=== PATIENT | male | born 1960 | race Caucasian/White ===

== ENCOUNTER 2019-10-16 14:10 | Emergency (ER) | payer BC ==
[2019-10-16] MEDS ORDERED: Ketorolac 30 MG/ML SDV IVPUSH ONE (14:29)
[2019-10-16] MEDS ORDERED: Sodium Chloride 0.9% 10 ML Syringe FLUSH PRN (14:29)
[2019-10-16] MEDS ORDERED: Ondansetron 4 MG/2 ML SDV IVPUSH ONE (14:29)
[2019-10-16] MEDS ORDERED: HYDROmorphone 0.5 MG/0.5 ML Syringe IVPUSH ONE ×2 (14:29→15:12)
[2019-10-16] MEDS ORDERED: Sodium Chloride 0.9% 1,000 ML IV SCH (14:30)
--- NOTE | 2019-10-16 15:31 | CT ---
CT abdomen and pelvis Technique: Multiple axial sections were obtained from above the dome of the diaphragm inferiorly through the pubic symphysis. Intravenous and oral contrast not utilized. Study has been performed as a CT angiogram protocol. Findings: Right kidney shows mildly dilated collecting system and a mildly dilated proximal ureter. Findings are caused by a 4.8 mm obstructing stone within the mid right ureter slightly above the level of the iliac crests. No additional ureteral calcifications are seen. No renal calcifications are seen. Other findings: Visualized lung bases show nothing acute. Liver contains no focal parenchymal abnormality. Spleen appears within normal limits. Adrenal glands show no nodule. Pancreas is within normal limits. Gallbladder shows no calcified gallstones. Aorta shows diffuse atherosclerotic calcification which continues in the iliac vessels. Fat-containing umbilical hernia is noted. No pelvic mass or adenopathy is seen. No free fluid is seen. Diverticuli are seen within the sigmoid colon without diverticulitis. Appendix is visualized and is normal in size. Bone window settings were reviewed which shows mild scattered degenerative change within the spine. Impression: 1. Obstructing 4.8 mm calculus within the mid right ureter located slightly above the level of the iliac crests. 2. Diverticuli within the sigmoid colon without diverticulitis. 3. No additional abnormality is appreciated on noncontrast CT study of the abdomen and pelvis. Diagnostic code #3 This report was dictated in [place] Standard Time
--- NOTE | 2019-10-16 16:04 | EDM.PDOC ---
ED HPI GENERAL MEDICAL PROBLEM - General Chief Complaint: Flank Pain Stated Complaint: FLANK PAIN Time Seen by Provider: 10/16/19 14:26 Source of Information: Reports: Patient History Limitations: Reports: No Limitations - History of Present Illness INITIAL COMMENTS - FREE TEXT/NARRATIVE: Patient is a 58-year-old male who presents with complaints of right-sided flank pain that began around 1230 this afternoon. He does have nausea and vomiting associated with this pain. The pain is localized to the right flank. Does not radiate down into the groin or the testicle. Patient states he has had kidney stones in the past. His last being approximately 18 years ago which was "broke up with the laser ". He denies any fever or chills. He has no chronic health conditions and takes no daily medications. Right Flank Pain Score (Numeric/FACES): 10 - Related Data Allergies Allergy/AdvReac Type Severity Reaction Status Date / Time No Known Allergies Allergy Verified 10/16/19 14:26 Home Meds: Home Meds Acetaminophen/oxyCODONE [Percocet 325-5 MG] 1 - 2 each PO Q4HR PRN #15 tab 10/15 [Rx] Ondansetron [Zofran ODT] 4 mg PO Q6H PRN #10 tab.dis 10/16/19 [Rx] Tamsulosin [Tamsulosin 24 Hr] 0.4 mg PO DAILY #14 cap.er 10/16/19 [Rx] Past Medical History - Past Health History Medical/Surgical History: Denies Medical/Surgical History Social & Family History - Tobacco Use Smoking Status *Q: Never Smoker Second Hand Smoke Exposure: No - Caffeine Use Caffeine Use: Reports: None - Recreational Drug Use Recreational Drug Use: No ED ROS GENERAL - Review of Systems Review Of Systems: Comprehensive ROS is negative, except as noted in HPI. ED EXAM, RENAL/ - Physical Exam Exam: See Below Exam Limited By: No Limitations General Appearance: Alert, WD/WN, Moderate Distress Respiratory/Chest: No Respiratory Distress, Lungs Clear, Normal Breath Sounds, No Accessory Muscle Use, Chest Non-Tender Cardiovascular: Normal Peripheral Pulses, Regular Rate, Rhythm, No Edema, No Gallop, No JVD, No Murmur, No Rub GI/Abdominal: Normal Bowel Sounds, Soft, Non-Tender, No Organomegaly, No Distention, No Abnormal Bruit, No Mass Back Exam: Normal Inspection, Full Range of Motion, CVA Tenderness (R) Neurological: Alert, Oriented, CN II-XII Intact, Normal Cognition, Normal Gait, Normal Reflexes, No Motor/Sensory Deficits Psychiatric: Normal Affect, Normal Mood Skin Exam: Warm, Intact, Normal Color, No Rash, Diaphoretic Course - Vital Signs Last Recorded V/S: Last Vital Signs Temp 98.1 F 10/16/19 17:24 Pulse 81 10/16/19 17:24 Resp 16 10/16/19 17:24 BP 134/68 10/16/19 17:24 Pulse Ox 97 10/16/19 17:24 - Orders/Labs/Meds Orders: Active Orders 24 hr Category Date Time Status Peripheral IV Care [RC] . DIRECTED Care 10/16/19 14:30 Active Peripheral IV Insertion Adult [OM.PC] Stat Oth 10/16/19 14:29 Ordered Labs: Laboratory Tests 10/16/19 10/16/19 10/16/19 Range/Units 13:42 13:42 16:08 WBC 10.12 H (4.23-9.07) K/mm3 RBC 4.95 (4.63-6.08) M/mm3 Hgb 15.0 (13.7-17.5) gm/dl Hct 44.1 (40.1-51.0) % MCV 89.1 (79.0-92.2) fl MCH 30.3 (25.7-32.2) pg MCHC 34.0 (32.2-35.5) g/dl RDW Std Deviation 44.6 H (35.1-43.9) fL Plt Count 280 (163-337) K/mm3 MPV 10.2 (9.4-12.3) fl Neut % (Auto) 68.6 H (34.0-67.9) % Lymph % (Auto) 23.3 (21.8-53.1) % Dawson % (Auto) 6.8 (5.3-12.2) % Eos % (Auto) 0.6 L (0.8-7.0) Baso % (Auto) 0.5 (0.1-1.2) % Neut # (Auto) 6.94 H (1.78-5.38) K/mm3 Lymph # (Auto) 2.36 (1.32-3.57) K/mm3 Dawson # (Auto) 0.69 (0.30-0.82) K/mm3 Eos # (Auto) 0.06 (0.04-0.54) K/mm3 Baso # (Auto) 0.05 (0.01-0.08) K/mm3 Manual Slide Review Normal smear Sodium 141 (136-145) mEq/L Potassium 3.6 (3.5-5.1) mEq/L Chloride 106 (98-107) mEq/L Carbon Dioxide 25 (21-32) mEq/L Anion Gap 13.6 (5-15) BUN 13 (7-18) mg/dL Creatinine 1.0 (0.7-1.3) mg/dL Est Cr Clr Drug Dosing 83.14 mL/min Estimated GFR (MDRD) > 60 (>60) mL/min BUN/Creatinine Ratio 13.0 L (14-18) Glucose 138 H (74-106) mg/dL Calcium 8.7 (8.5-10.1) mg/dL Total Bilirubin 0.4 (0.2-1.0) mg/dL AST 18 (15-37) U/L ALT 32 (16-63) U/L Alkaline Phosphatase 60 (46-116) U/L Total Protein 7.6 (6.4-8.2) g/dl Albumin 4.1 (3.4-5.0) g/dl Globulin 3.5 gm/dL Albumin/Globulin Ratio 1.2 (1-2) Urine Color Yellow (Yellow) Urine Appearance Clear (Clear) Urine pH 5.5 (5.0-8.0) Ur Specific [place] > or = 1.030 (1.005-1.030) Urine Protein 2+ H (Negative) Urine Glucose (UA) Negative (Negative) Urine Ketones Negative (Negative) Urine Occult Blood 3+ H (Negative) Urine Nitrite Negative (Negative) Urine Bilirubin Negative (Negative) Urine Urobilinogen 0.2 (0.2-1.0) Ur Leukocyte Esterase Negative (Negative) U Hyaline Cast (Auto) 0-5 (0-5) /lpf Urine RBC >100 H (0-5) /hpf Urine WBC 0-5 (0-5) /hpf Ur Squamous Epith Cells 0-5 (0-5) /hpf Urine Bacteria Few (FEW) /hpf Urine Mucus Rare (FEW) /hpf Meds: Medications Discontinued Medications Generic Name Dose Route Start Last Admin Trade Name Freq PRN Reason Stop Dose Admin Hydromorphone HCl 0.5 mg 10/16/19 14:29 10/16/19 14:37 Dilaudid IVPUSH 10/16/19 14:30 0.5 mg ONETIME ONE Administration Hydromorphone HCl 0.5 mg 10/16/19 15:12 10/16/19 15:20 Dilaudid IVPUSH 10/16/19 15:13 0.5 mg ONETIME ONE Administration Sodium Chloride 1,000 mls @ 999 mls/hr 10/16/19 14:30 10/16/19 14:42 Normal Saline IV 999 mls/hr ASDIRECTED MICHAELA Administration Ketorolac Tromethamine 30 mg 10/16/19 14:29 10/16/19 14:39 Toradol IVPUSH 10/16/19 14:30 30 mg ONETIME ONE Administration Ondansetron HCl 4 mg 10/16/19 14:29 10/16/19 14:35 Zofran IVPUSH 10/16/19 14:30 4 mg ONETIME ONE Administration Sodium Chloride 10 ml 10/16/19 14:29 10/16/19 14:20 Saline Flush FLUSH 10 ml ASDIRECTED PRN Administration Keep Vein Open - Re-Assessments/Exams Free Text/Narrative Re-Assessment/Exam: 10/16/19 16:38 Hematology was significant for a WBC at 10.12. CT was positive for a 4.8 mm obstructing stone within the mid right ureter slightly above the level of the iliac crest. He does also have diverticuli, however there are no signs of diverticulitis. Urinalysis was negative for any signs of infection but did have 3+ occult blood, greater than 100 RBCs. Discussed these findings with the patient. We will discharge him home with a urine strainer, Percocets for pain, Zofran for nausea, and a prescription for Flomax. Discharge instructions as documented. Departure - Departure Time of Disposition: 17:03 Disposition: Home, Self-Care 01 Condition: Fair Clinical Impression: Kidney stone on right side - Discharge Information *PRESCRIPTION DRUG MONITORING PROGRAM REVIEWED*: Yes *COPY OF PRESCRIPTION DRUG MONITORING REPORT IN PATIENT CYNDI: No Prescriptions: Acetaminophen/oxyCODONE [Percocet 325-5 MG] 1 - 2 each PO Q4HR PRN #15 tab PRN Reason: Pain Ondansetron [Zofran ODT] 4 mg PO Q6H PRN #10 tab.dis PRN Reason: Nausea/Vomiting Tamsulosin [Tamsulosin 24 Hr] 0.4 mg PO DAILY #14 cap.er Instructions: Kidney Stones, [id number] Referrals: PCP,None [Primary Care Provider] - Forms: ED Department Discharge Additional Instructions: You were seen in the emergency department today for right-sided flank pain. A CT of your abdomen was completed and shows a 4.8 mm obstructing kidney stone in the mid right ureter. Your urinalysis was also positive for blood which is consistent with the finding of a kidney stone. Your blood in urinalysis was otherwise normal. You have been provided a urine strainer. Strain your urine each time you go so that you may monitor for when you pass the stone. A prescription for Percocet, Zofran, and Flomax has been sent to clinic pharmacy. Take these medications as prescribed. Do not drive or operate machinery after taking the Percocet as it is sedating. If you have not passed the stone within the next week, I would recommend that you follow-up with a urologist. If you experience any worsening symptoms of concern, please do not hesitate to return to the emergency department. Sepsis Event Note - Evaluation Sepsis Screening Result: No Definite Risk - Focused Exam Vital Signs: Vital Signs Temp Pulse Resp BP Pulse Ox 10/16/19 17:24 98.1 F 81 16 134/68 97 10/16/19 14:24 96.9 F 76 18 151/85 H 100 Date Exam was Performed: 10/16/19 Time Exam was Performed: 19:56 - My Orders Last 24 Hours: My Active Orders 10/16/19 14:29 Peripheral IV Insertion Adult [OM.PC] Stat 10/16/19 14:30 Peripheral IV Care [RC] . DIRECTED - Assessment/Plan Last 24 Hours: My Active Orders 10/16/19 14:29 Peripheral IV Insertion Adult [OM.PC] Stat 10/16/19 14:30 Peripheral IV Care [RC] . DIRECTED
== END 2019-10-16 17:25 | disposition home or self-care (01) ==
LOC: JD.ED 14:10
DX: N20.2 Calculus of kidney with calculus of ureter (principal); Z79.899 Other long term (current) drug therapy
CPT/HCPCS: 36415; 74176; 80053; 81001; 85025; 96361; 96374; 96375; 96376; 99284; J1170; J1885; J2405; J7030